=== PATIENT | female | born 1950 | race Caucasian/White ===

== ENCOUNTER 2019-10-28 08:54 | Day surgery (SDC) | payer BC ==
[2019-10-28] MEDS ORDERED: LIDOCAINE 2% MDV (20MG/ML) 20ML VIAL IV ONE (08:55)
[2019-10-28] MEDS ORDERED: PROPOFOL 10 MG/ML VIAL IV ONE (08:55)
--- NOTE | 2019-11-02 14:01 | Operative Note ---
OPERATION: COLONOSCOPY. PREOPERATIVE DIAGNOSIS: Family history of colon cancer, personal history of colon polyps. POSTOPERATIVE DIAGNOSIS: Sigmoid diverticulosis, otherwise normal exam. PROCEDURE: After informed consent was obtained from the patient, she was placed in the left lateral decubitus position in the endoscopy suite, sedated and monitored by the department of anesthesia. Digital rectal exam was unremarkable. A well-lubricated [id number] colonoscope was inserted into the rectum and advanced to the cecum. Preparation quality was excellent. The cecum, cecal bulb, ileocecal valve, appendiceal orifice, ascending colon, transverse colon, descending colon, and sigmoid colon were free of inflammatory changes, mass lesions, or polyps. There were mild sigmoid diverticular changes noted. The rectum was unremarkable in forward and J-turn views other than a small hypertrophied anal papilla. The endoscope was straightened, the rectal ampulla deflated, and the endoscope was removed. RECOMMENDATIONS: The patient should follow a high-fiber diet. Based on her family history, I would recommend a repeat exam in 5 years. As always, thank you for allowing me to participate in the healthcare of your patients. DAVIDA
== END 2019-10-28 10:40 | disposition home or self-care (01) ==
LOC: HOP 08:54
PROVIDERS: ATTEND Internal Medicine Gastroenterology
DX: Z09 Encounter for follow-up examination after completed treatment for conditions other than malignant neoplasm (principal); Z86.010 Personal history of colon polyps; K57.30 Diverticulosis of large intestine without perforation or abscess without bleeding; K62.89 Other specified diseases of anus and rectum; Z80.0 Family history of malignant neoplasm of digestive organs; I10 Essential (primary) hypertension; K21.9 Gastro-esophageal reflux disease without esophagitis; E11.9 Type 2 diabetes mellitus without complications; E78.00 Pure hypercholesterolemia, unspecified